=== PATIENT | female | born 1970 | race Caucasian/White ===

== ENCOUNTER → 2016-05-31 | Outpatient (CLI) | payer OTHER ==
[~2016-05-31] MED LIST: ?BP MED; ALPRAZOLAM PO; AMBIEN PO; ATENOLOL PO; ATENOLOL50 MG PO; BENTYL20 MG PO; BIRTH CONTROL PILL; CLEOCIN HCL150 MG PO; DOXYCYCLINE PO; FLAGYL PO; FLEXERIL10 MG PO; FLOXIN10 ML OT; HCTZ PO; HYDROCODON-ACE1 EACH; HYDROXYZINE HCL25 M1; KCL PO; KLOR-CON PO; LASIX PO; LASIX20 MG PO; LORTAB 5-325 M1 EACH PO; LORTAB 5/500 TA1 TA1 PO; MICRO-K10 MEQ PO; MOTION SICKNESS25 M5 PO; NEURONTIN300 MG PO; OMEPRAZOLE20 M2 PO; OMEPRAZOLE40 MG PO; PERCOCET PO; PHENERGAN PO; PHENERGAN25 M1 DOB; PHENERGAN25 M1 PO; PHENERGAN25 MG PO; PREVACID PO; PRILOSEC20 M1 PO; PROTO TOP; PROZAC PO; SEROQUEL PO; SEROQUEL50 M1 PO; TENORMIN25 MG PO; TOPAMAX PO; TOPAMAX25 MG PO; TOPAMAX50 MG PO; XANAX1 MG PO; ZANTAC PO; ZOCOR PO; ZOFRAN ODT4 MG PO
--- NOTE | ~2016-05-31 | MR134 ---
[facility] A Service of [facility] RADIOLOGY TEXT RESULTS PATIENT: LEOBARDO VALDEZ LOCATION: CMRI : 72 UNIT #: [id number] AGE: [address]: SELIN KELLEY APRN SEX: F ORDER DR: [id number] [facility] [address] [place], [place] [address] [id number] O MR#: [id number] Acc #: [id number] NAME: LEOBARDO VALDEZ. : 1970 SEX: F STUDY DATE/TIME: 05/31/2016 15:06 UNIT: CMRI ROOM: STUDY DESCRIPTION: MR MRA Neck Wo Contrast Attending Physician: Selin Kelley Aprn Referring Physician: Selin Kelley Aprn Ordering Physician: Selin Kelley Aprn Primary Care Physician: Telly Soriano M.D. MRI CENTER REPORT This report is preliminary unless electronic signature is present. EXAM MRA of the cervical cerebral vasculature performed without contrast on 05/31/2016 HISTORY 2-D and 3-D jxra-ck-itpocd images were obtained through the region of the cervical cerebral vasculature and MIP reconstruction was then performed in multiple planes. FINDINGS The arch angiogram demonstrates a normal branching pattern without evidence of a great vessel origin stenosis. The right common carotid artery is also widely patent and its origin. The vertebral artery origins are widely patent with slight left-side dominance. The cervical carotid bifurcations are patent with no significant stenosis seen. IMPRESSION No significant stenosis within the cervical cerebral vasculature, including the aortic arch. No aneurysms or hypervascular lesions are demonstrated. Dictated by... Gavin Coreas M.D. THIS IS AN ELECTRONICALLY VERIFIED REPORT Gavin Coreas M.D. at 06/01/2016 5:16 PM RP/shanell TD: 05/31/2016 21:49 JOB #: [id number] [facility] A Service [facility] RADIOLOGY TEXT RESULTS PATIENT: LEOBARDO VALDEZ LOCATION: CMRI : 72 UNIT #: [id number] AGE: [address]: SELIN KELLEY APRN SEX: F ORDER DR: MRI CENTER REPORT COPY
--- NOTE | ~2016-05-31 | MR122 ---
[facility] A Service of [facility] RADIOLOGY TEXT RESULTS PATIENT: LEOBARDO VALDEZ LOCATION: CMRI : 72 UNIT #: [id number] AGE: [address]: SELIN KELLEY APRN SEX: F ORDER DR: [id number] [facility] [address] [place], [place] [address] [id number] O MR#: [id number] Acc #: [id number] NAME: LEOBARDO VALDEZ. : 1970 SEX: F STUDY DATE/TIME: 05/31/2016 15:06 UNIT: [facility] ROOM: STUDY DESCRIPTION: MR MRA Head Wo Contrast Attending Physician: Selin Kelley Aprn Referring Physician: Selin Kelley Aprn Ordering Physician: Selin Kelley Aprn Primary Care Physician: Telly Soriano M.D. MRI CENTER REPORT This report is preliminary unless electronic signature is present. EXAM MRA of the intracranial vasculature 05/31/2016 HISTORY 45-year-old female with severe headaches. Patient has headaches that started 5 months ago with no known injury. The patient has had some dizziness as well as vision loss in the right eye intermittently. Left lip and arm numbness. TECHNIQUE 3-D mztu-gy-kbsknx images were obtained through the region of the intracranial vasculature and MIP reconstruction was then performed in multiple planes. FINDINGS The intracranial ICA is normal in caliber bilaterally. The M1 segments are normal in caliber bilaterally as is the left A1 segment. The right A1 segment is hypoplastic. A patent anterior communicating artery is seen with normal right and left A2 runoff. The MCA bifurcation is normal bilaterally with normal M2 runoff seen. In the posterior circulation, there is a slightly dominant left vertebral artery but a patent right. Dominant posterior-inferior cerebellar arteries are seen bilaterally. The basilar artery is normal in caliber but tortuous and terminates into normal P1 and P2 segments bilaterally, although there is a oalaoumv-nd-clazk posterior communicating artery on the right. No aneurysms, hypervascular lesions or evidence of AV shunting is appreciated. IMPRESSION 1. No significant stenosis, aneurysm or hypervascular lesion within the intracranial circulation. Hypoplastic right A1 segment but patent anterior communicating artery seen. 2. Right posterior communicating artery. [facility] A Service of [facility] RADIOLOGY TEXT RESULTS PATIENT: LEOBARDO VALDEZ LOCATION: CMRI : 72 UNIT #: [id number] AGE: [address]: SELIN KELLEY APRN SEX: F ORDER DR: Dictated by... Gavin Coreas M.D. THIS IS AN ELECTRONICALLY VERIFIED REPORT Gavin Coreas M.D. at 06/01/2016 5:16 PM RP/pcl TD: 05/31/2016 23:23 JOB #: [id number] MRI CENTER REPORT COPY
== END | disposition home or self-care (01) ==
LOC: CMRI 14:34
DX: G43.109 Migraine with aura, not intractable, without status migrainosus (principal); H53.9 Unspecified visual disturbance; R55 Syncope and collapse; Q28.3 Other malformations of cerebral vessels
CPT/HCPCS: 70544; 70547

== ENCOUNTER → 2016-06-07 | Outpatient (CLI) | payer OTHER | END | disposition home or self-care (01) | LOC: CSSDAY 15:15 | DX: R51 Headache (principal) | CPT/HCPCS: 96365; 96367; J2930; J3475 ==

== ENCOUNTER → 2016-06-08 | Outpatient (CLI) | payer OTHER | END | disposition home or self-care (01) | LOC: CSSDAY 06:42 | DX: R51 Headache (principal); Z79.899 Other long term (current) drug therapy | CPT/HCPCS: 96365; 96367; J2930; J3475 ==

== ENCOUNTER → 2016-06-09 | Outpatient (CLI) | payer OTHER | END | disposition home or self-care (01) | LOC: CSSDAY 07:05 | DX: R51 Headache (principal) | CPT/HCPCS: 96365; 96367; J2930; J3475 ==

== ENCOUNTER → 2016-06-10 | Outpatient (CLI) | payer OTHER | END | disposition home or self-care (01) | LOC: CSSDAY 06:23 | DX: R51 Headache (principal); Z79.899 Other long term (current) drug therapy | CPT/HCPCS: 96365; 96367; J2930; J3475 ==

== ENCOUNTER → 2016-06-11 | Outpatient (CLI) | payer OTHER | END | disposition home or self-care (01) | LOC: CSSDAY 06:50 | DX: R51 Headache (principal) | CPT/HCPCS: 96365; 96367; J2930 ==